=== PATIENT | female | born 1995 ===

== ENCOUNTER → 2019-09-04 | Outpatient (CLI) | payer OTHER | END | disposition home or self-care (01) | LOC: LAB SHORT 17:18 → LAB 17:18 | PROVIDERS: Obstetrics & Gynecology | DX: O30.049 Twin pregnancy, dichorionic/diamniotic, unspecified trimester (principal) | CPT/HCPCS: G0123 ==

== ENCOUNTER 2019-11-12 14:35 | Inpatient (IN) | payer OTHER ==
[~2019-11-12] VITALS: Ht 154.9 cm; Wt 56.0 kg
[2019-11-12] MEDS ORDERED: ZYRTEC10 M2 PO (15:19)
--- NOTE | 2019-11-12 15:54 | NUR ---
DR CASTILLO AT BEDSIDE
--- NOTE | 2019-11-12 18:15 | NUR ---
TRANSPORT TEAM IN ROOM WITH BABY A
[2019-11-12 19:02] LABS: BASOPHILS ABSOLUTE AUTO 0.09 K/mm3 (0.00-0.23); BASOPHILS PERCENT AUTO 0 % (0-2); EOSINOPHILS ABSOLUTE AUTO 0.01 K/mm3 (0.00-0.68); EOSINOPHILS PERCENT AUTO 0 % (0-6); Hematocrit 33.7 % (33.0-51.0); Hemoglobin 10.8 g/dL (11.5-16.0); IMMATURE GRAN ABSOLUTE AUTO 0.69 K/mm3 (0.00-0.10); IMMATURE GRAN PERCENT AUTO 2 % (0-1); LYMPHOCYTES ABSOLUTE AUTO 1.69 K/mm3 (0.84-5.20); LYMPHOCYTES PERCENT AUTO 5 % (21-46); MONOCYTES ABSOLUTE AUTO 1.03 K/mm3 (0.16-1.47); MONOCYTES PERCENT AUTO 3 % (4-13); Mean Corpuscular HGB 27.6 pg (26.0-34.0); Mean Corpuscular Volume 86 fL (80-100); Mean Platelet Volume 10.2 fL (9.1-12.4); NEUTROPHILS ABSOLUTE AUTO 27.82 K/mm3 (1.96-9.15); NEUTROPHILS PERCENT AUTO 89 % (41-73); Platelet Count 372 K/mm3 (150-400); RDW Coefficient Variation 12.7 % (11.7-14.2); RDW Standard Deviation 39.8 fL (35.1-46.3); Red Blood Cell Count 3.91 M/mm3 (3.80-5.20); White Blood Cell Count 31.33 K/mm3 (4.00-11.30)
[2019-11-12] MEDS ORDERED: IBU800 M1 PO (20:09)
--- NOTE | 2019-11-12 22:01 | NUR ---
PT DISCHARGED HOME, ACCOMPANIED TO VEHICLE BY SO AND RN AT [id number].
== END 2019-11-12 21:27 | disposition home or self-care (01) | DRG 807 ==
LOC: OBS 14:35 → BC 14:49
PROVIDERS: ADMIT Obstetrics & Gynecology
PROC: 10E0XZZ Delivery of Products of Conception, External Approach (ICD-10-PCS; principal; 2019-11-12)
PROC: 10907ZC Drainage of Amniotic Fluid, Therapeutic from Products of Conception, Via Natural or Artificial Opening (ICD-10-PCS; 2019-11-12)
DX: O60.12X0 Preterm labor second trimester with preterm delivery second trimester, not applicable or unspecified (principal); Z37.2 Twins, both liveborn; O30.042 Twin pregnancy, dichorionic/diamniotic, second trimester; Z3A.27 27 weeks gestation of pregnancy
CPT/HCPCS: 36415; 85025; J0690; J1885; J2590; J7120

== ENCOUNTER → 2020-08-11 | Outpatient (CLI) | payer OTHER ==
[~2020-08-11] MED LIST: IBU800 M1 PO; METR500 PO; PRENATAL TABLE1 EAC2 PO; ZYRTEC10 M2 PO
[2020-08-15 03:08] LABS: CHLAMYDIA TRACHOMATIS, NAA Negative (Negative)
== END ==
LOC: LAB SHORT 16:00 → LAB 16:00
PROVIDERS: Obstetrics & Gynecology
DX: Z11.3 Encounter for screening for infections with a predominantly sexual mode of transmission (principal)
CPT/HCPCS: 87491; 87591

== ENCOUNTER 2020-12-22 19:33 | Observation (INO) | payer OTHER ==
[~2020-12-22] VITALS: Ht 185.4 cm; Wt 63.6 kg
[~2020-12-22 19:33] MED LIST changes: -METR500 PO; -PRENATAL TABLE1 EAC2 PO
[2020-12-22 20:56] LABS: Source, Urine Clean Catch
[2020-12-22 20:59] LABS: Appearance, Urine Cloudy (Clear); Bilirubin, Urine Neg (Neg); Blood, Urine 1+ (Neg); Color, Urine Amber (P-Yellow); Glucose Qualitative, Urine 1+ (Neg); Ketones, Urine 4+ (Neg); Leukocyte Esterase, Urine 3+ (Neg); Nitrite, Urine Neg (Neg); Protein, Urine 2+ (Neg); Specific Gravity, Urine 1.025 (1.003-1.022); Urobilinogen, Urine 1+ (Normal)
[2020-12-22 21:09] LABS: Red Blood Cells, Urine 0-2 /hpf (0-2); White Blood Cells, Urine 25-50 /hpf (0-5)
[2020-12-22 21:10] LABS: Bacteria Many /hpf; Squamous Epithelial Cells Many /hpf (Few)
[2020-12-22 21:21] LABS: BASOPHILS ABSOLUTE AUTO 0.06 K/mm3 (0.00-0.23); BASOPHILS PERCENT AUTO 0 % (0-2); EOSINOPHILS ABSOLUTE AUTO 0.09 K/mm3 (0.00-0.68); EOSINOPHILS PERCENT AUTO 1 % (0-6); Hematocrit 35.1 % (33.0-51.0); Hemoglobin 11.6 g/dL (11.5-16.0); IMMATURE GRAN ABSOLUTE AUTO 0.22 K/mm3 (0.00-0.10); IMMATURE GRAN PERCENT AUTO 1 % (0-1); LYMPHOCYTES ABSOLUTE AUTO 2.37 K/mm3 (0.84-5.20); LYMPHOCYTES PERCENT AUTO 13 % (21-46); MONOCYTES ABSOLUTE AUTO 0.76 K/mm3 (0.16-1.47); MONOCYTES PERCENT AUTO 4 % (4-13); Mean Corpuscular HGB 26.4 pg (26.0-34.0); Mean Corpuscular Volume 80 fL (80-100); Mean Platelet Volume 10.7 fL (9.1-12.4); NEUTROPHILS ABSOLUTE AUTO 14.23 K/mm3 (1.96-9.15); NEUTROPHILS PERCENT AUTO 80 % (41-73); Platelet Count 355 K/mm3 (150-400); RDW Coefficient Variation 12.8 % (11.7-14.2); RDW Standard Deviation 36.9 fL (35.1-46.3); Red Blood Cell Count 4.39 M/mm3 (3.80-5.20); White Blood Cell Count 17.73 K/mm3 (4.00-11.30)
[2020-12-22 21:39] LABS: Anion Gap 8 mmol/L (6-16); Blood Urea Nitrogen 7 mg/dL (8-24); Bun/Creatinine Ratio 11.3 (12.0-20.0); CO2, Blood 22 mmol/L (21-32); Calcium, Blood 8.6 mg/dL (8.5-10.1); Chloride, Blood 107 mmol/L (98-108); Creatinine, Blood 0.62 mg/dL (0.40-1.00); Glomerular Filtration Rate >60 (60-); Glucose, Blood 106 mg/dL (70-99); Potassium, Blood 3.3 mmol/L (3.5-5.5); Sodium, Blood 137 mmol/L (136-145)
[2020-12-22 22:20] LABS: Candida species (DNA Probe) Negative (NEGATIVE); G. vaginalis (DNA Probe) Positive (NEGATIVE); T. vaginalis (DNA Probe) Negative (NEGATIVE)
[2020-12-23] MEDS ORDERED: PRENATAL TABLE1 EAC2 PO (00:47)
[2020-12-23 01:15] LABS: SARS-Cov-2 (COVID-19) PCR, MMC NEGATIVE (NEGATIVE)
[2020-12-23] MEDS ORDERED: METR500 PO (07:31)
--- NOTE | 2020-12-23 08:32 | NUR ---
pt given written and verbal dc instructions. pt verbalizes understanding. prescription for flagyl 500 mg po bid x 7 days called in to [facility]. pt understands to take all meds until they are gone and to pick them up today when her comes to get her. questions answered and pt will return if any further questions or concerns arise.
[2020-12-25 01:10] LABS: CHLAMYDIA TRACHOMATIS, NAA Negative (Negative)
== END 2020-12-23 07:30 | disposition home or self-care (01) ==
LOC: BC 19:33 → OBS 19:33 → BC 19:39 → OBS 23:39 → BC 23:39
PROVIDERS: Obstetrics & Gynecology; ADMIT Advanced Practice Midwife
DX: O60.03 Preterm labor without delivery, third trimester (principal); O23.593 Infection of other part of genital tract in pregnancy, third trimester; B96.89 Other specified bacterial agents as the cause of diseases classified elsewhere; O09.213 Supervision of pregnancy with history of pre-term labor, third trimester; Z3A.31 31 weeks gestation of pregnancy; Z20.822 Contact with and (suspected) exposure to COVID-19; Z91.09 Other allergy status, other than to drugs and biological substances
CPT/HCPCS: 80048; 81001; 85025; 87086; 87480; 87491; 87510; 87591; 87660; 96361; 96365; 96372; A9270; G0378; J0696; J3105; J7120; U0004

== ENCOUNTER → 2021-01-22 | Outpatient (CLI) | payer OTHER ==
[~2021-01-22] MED LIST changes: +METR500 PO; +PRENATAL TABLE1 EAC2 PO
== END | disposition home or self-care (01) ==
LOC: LAB SHORT 18:20 → LAB 18:20
DX: O09.213 Supervision of pregnancy with history of pre-term labor, third trimester (principal)
CPT/HCPCS: 87081; 87150

== ENCOUNTER → 2021-01-30 | Outpatient (CLI) | payer OTHER ==
[2021-01-30 13:13] LABS: Source, Urine Clean Catch
[2021-01-30 14:57] LABS: Appearance, Urine Clear (Clear); Bilirubin, Urine Neg (Neg); Blood, Urine Neg (Neg); Color, Urine Yellow (P-Yellow); Glucose Qualitative, Urine Neg (Neg); Ketones, Urine Neg (Neg); Leukocyte Esterase, Urine 3+ (Neg); Nitrite, Urine Neg (Neg); Protein, Urine 1+ (Neg); Urobilinogen, Urine 2+ (Normal); pH, Urine 6.5 (5.0-8.0)
[2021-01-30 15:21] LABS: White Blood Cells, Urine 25-50 /hpf (0-5)
[2021-01-30 15:22] LABS: Bacteria Many /hpf; Squamous Epithelial Cells Mod /hpf (Few)
[2021-01-31 09:44] LABS: Candida species (DNA Probe) Negative (NEGATIVE); G. vaginalis (DNA Probe) Positive (NEGATIVE); T. vaginalis (DNA Probe) Negative (NEGATIVE)
== END | disposition home or self-care (01) ==
LOC: LAB SHORT 11:35 → LAB 11:35
PROVIDERS: Obstetrics & Gynecology
DX: N76.0 Acute vaginitis (principal); R30.9 Painful micturition, unspecified
CPT/HCPCS: 81001; 87086; 87480; 87510; 87660

== ENCOUNTER 2021-02-20 05:32 | Inpatient (IN) | payer OTHER ==
[2021-02-20 05:58] LABS: BASOPHILS ABSOLUTE AUTO 0.05 K/mm3 (0.00-0.23); BASOPHILS PERCENT AUTO 0 % (0-2); EOSINOPHILS ABSOLUTE AUTO 0.15 K/mm3 (0.00-0.68); EOSINOPHILS PERCENT AUTO 1 % (0-6); Hematocrit 32.5 % (33.0-51.0); Hemoglobin 10.4 g/dL (11.5-16.0); IMMATURE GRAN ABSOLUTE AUTO 0.23 K/mm3 (0.00-0.10); IMMATURE GRAN PERCENT AUTO 2 % (0-1); LYMPHOCYTES ABSOLUTE AUTO 1.78 K/mm3 (0.84-5.20); LYMPHOCYTES PERCENT AUTO 14 % (21-46); MONOCYTES ABSOLUTE AUTO 0.89 K/mm3 (0.16-1.47); MONOCYTES PERCENT AUTO 7 % (4-13); Mean Corpuscular HGB 23.5 pg (26.0-34.0); Mean Corpuscular Volume 73 fL (80-100); Mean Platelet Volume 10.9 fL (9.1-12.4); NEUTROPHILS ABSOLUTE AUTO 9.63 K/mm3 (1.96-9.15); NEUTROPHILS PERCENT AUTO 76 % (41-73); Platelet Count 319 K/mm3 (150-400); RDW Coefficient Variation 14.6 % (11.7-14.2); RDW Standard Deviation 38.9 fL (35.1-46.3); Red Blood Cell Count 4.43 M/mm3 (3.80-5.20); White Blood Cell Count 12.73 K/mm3 (4.00-11.30)
--- NOTE | 2021-02-20 12:51 | NUR ---
per management at this time, placenta disposed of and patient is not able to take it home due to possible infectious risk of pt being covid positive, pt and so updated, they are ok with not getting it, but would have like to have had it to plant a tree with.
--- NOTE | 2021-02-20 15:17 | NUR ---
pt reports doing well, just tired
--- NOTE | 2021-02-20 18:02 | NUR ---
pt has slept most of the day, have had to wake her up to feed baby. fob has set and alarm for feeding baby this evening, he has also slept most of the day
[2021-02-21 06:03] LABS: BASOPHILS ABSOLUTE AUTO 0.07 K/mm3 (0.00-0.23); BASOPHILS PERCENT AUTO 1 % (0-2); EOSINOPHILS ABSOLUTE AUTO 0.09 K/mm3 (0.00-0.68); EOSINOPHILS PERCENT AUTO 1 % (0-6); Hematocrit 25.6 % (33.0-51.0); Hemoglobin 8.1 g/dL (11.5-16.0); IMMATURE GRAN PERCENT AUTO 2 % (0-1); LYMPHOCYTES ABSOLUTE AUTO 2.13 K/mm3 (0.84-5.20); LYMPHOCYTES PERCENT AUTO 16 % (21-46); MONOCYTES ABSOLUTE AUTO 1.12 K/mm3 (0.16-1.47); MONOCYTES PERCENT AUTO 9 % (4-13); Mean Corpuscular HGB Conc 31.6 g/dL (31.5-36.5); Mean Corpuscular Volume 76 fL (80-100); Mean Platelet Volume 11.1 fL (9.1-12.4); NEUTROPHILS PERCENT AUTO 72 % (41-73); Platelet Count 259 K/mm3 (150-400); RDW Coefficient Variation 15.2 % (11.7-14.2); RDW Standard Deviation 41.1 fL (35.1-46.3); Red Blood Cell Count 3.37 M/mm3 (3.80-5.20); White Blood Cell Count 13.11 K/mm3 (4.00-11.30)
[2021-02-21] MEDS ORDERED: IBUP800 PO (10:22)
[2021-02-21] MEDS ORDERED: FERSU300 PO (10:23)
--- NOTE | 2021-02-21 11:45 | NUR ---
DC INSTRUCTIONS GONE OVER WITH PT, COVID PRECAUTIONS QUARINTENE PRECAUTIONS FOR THE NEXT 10 DAYS, THE COVID TASK FORCE WILL BE CALLING, INFO GIVEN. ENCOURAGED TO CALL DR WITH QUESTIONS. PLAN TO FEED BABY THEN GO HOME, HAS MADE ARRANGEMENTS WITH FAMILY FOR RUNNING FOR SUPPIES AND GETTING PT SCRIPT FILLED
== END 2021-02-21 12:06 | disposition home or self-care (01) | DRG 805 ==
LOC: OBS 05:32 → BC 05:33 → OBS 05:37 → BC 05:38
PROVIDERS: ADMIT Obstetrics & Gynecology
PROC: 10E0XZZ Delivery of Products of Conception, External Approach (ICD-10-PCS; principal; 2021-02-20)
DX: O24.420 Gestational diabetes mellitus in childbirth, diet controlled (principal); U07.1 COVID-19; Z37.0 Single live birth; O98.52 Other viral diseases complicating childbirth; Z3A.39 39 weeks gestation of pregnancy; O99.02 Anemia complicating childbirth; D64.9 Anemia, unspecified; O99.52 Diseases of the respiratory system complicating childbirth; J30.2 Other seasonal allergic rhinitis; Z79.899 Other long term (current) drug therapy
CPT/HCPCS: 36415; 59025; 82947; 85025; 86850; 86900; 86901; 99214; A9270; J1885; J2590; J3010; J7120; U0004

== ENCOUNTER 2021-05-14 10:40 | Day surgery (SDC) | payer OTHER ==
[~2021-05-14] VITALS: Ht 154.9 cm; Wt 59.2 kg
[~2021-05-14 10:40] MED LIST changes: +FERSU300 PO; +IBUP800 PO
[2021-05-14] MEDS ORDERED: ZYRTEC10 M4 PO (11:27)
[2021-05-14] MEDS ORDERED: FLONASE ALLERG9.9 M2 INH (11:27)
--- NOTE | 2021-05-14 13:01 | NUR ---
05/14/21 1301 [place] Prasad ORSC.JAR LOWER PREP ORSC.DXH UPPER PREP
== END 2021-05-14 14:16 | disposition home or self-care (01) ==
LOC: ORSCSDS 10:40
PROVIDERS: Obstetrics & Gynecology
PROC: 0UT74ZZ Resection of Bilateral Fallopian Tubes, Percutaneous Endoscopic Approach (ICD-10-PCS; principal; 2021-05-14 12:00)
DX: Z30.2 Encounter for sterilization (principal); F41.9 Anxiety disorder, unspecified; Z79.899 Other long term (current) drug therapy
CPT/HCPCS: 88302; J0171; J1100; J1885; J2250; J2405; J2704; J3010; J7120

== ENCOUNTER → 2022-01-15 | Outpatient (CLI) | payer OTHER ==
[~2022-01-15] MED LIST changes: +FLONASE ALLERG9.9 M2 INH; +ZYRTEC10 M4 PO
== END | disposition home or self-care (01) ==
LOC: PLD 08:14 → LAB SHORT 08:14
DX: L91.0 Hypertrophic scar (principal)
CPT/HCPCS: 88305